=== PATIENT | female | born 1940 | race Asian ===

== ENCOUNTER 2016-12-05 12:08 | Emergency (ER) | payer MEDICARE, OTHER ==
[~2016-12-05] VITALS: Ht 149.9 cm; Wt 54.5 kg
[~2016-12-05 12:08] MED LIST: AMLO-512 PO; ASPI-825 PO; CALC-487 PO; FAMO40TA76 PO; HYDR50 PO; LISI40TA4 PO; LOSA50TA37 PO; METF500T4 PO; METO10TA3 PO; METO50 PO; MULT400T5; NACL1 PO; NEBI5 PO; PRAV20TA4 PO; PRED20 PO
[2016-12-05 12:46] LABS: GLUCOSE,POINT OF CARE 154 MG/DL (70-110)
[2016-12-05 12:50] LABS: BASOPHILS % (AUTO) 0.5 % (0.0-2.0); EOSINOPHILS % (AUTO) 2.6 % (1.0-6.0); HEMATOCRIT 36.3 % (36-46); HEMOGLOBIN 12.3 g/dL (12.0-16.0); LYMPHOCYTES # (AUTO) 1.7 K/uL (1.0-4.8); LYMPHOCYTES % (AUTO) 20.9 % (22.0-44.0); MEAN CORPUSCULAR HEMOGLOBIN 28.6 pg (26.0-34.0); MEAN CORPUSCULAR HGB CONC 33.8 G/dL (31.0-37.0); MEAN CORPUSCULAR VOLUME 84 fL (80-100); MONOCYTES # (AUTO) 0.8 K/uL (0.1-1.0); MONOCYTES % (AUTO) 9.9 % (2.0-9.0); NEUTROPHILS # (AUTO) 5.5 K/uL (1.8-7.7); NEUTROPHILS % (AUTO) 66.1 % (40.0-70.0); PLATELET COUNT (AUTO) 277 K/uL (150-450); RED BLOOD CELL COUNT(AUTO) 4.31 MIL/uL (4.00-5.20); RED CELL DISTRIBUTION WIDTH 13.4 % (11.5-14.5); WHITE BLOOD COUNT (AUTO) 8.3 K/uL (4.5-11.0)
[2016-12-05 12:59] LABS: ANION GAP 8 mmol/L (8-16); CARBON DIOXIDE 28 mmol/L (22-29); CHLORIDE 90 mmol/L (98-107); CREATININE 1.03 mg/dL (0.60-1.30); GLOMERULAR FILTR. RATE CALC 52 mL/min (>60); SODIUM SERUM 126 mmol/L (136-145); UREA NITROGEN, BLOOD 18 mg/dL (7-18)
[2016-12-05 13:01] LABS: PROTHROMBIN TIME 10.3 SEC (9.4-11.6)
[2016-12-05 13:05] LABS: ALANINE AMINOTRANSFERASE 26 U/L (12-78); ALBUMIN 4.1 g/dL (3.4-5.0); ASPARTATE AMINOTRANSFERASE 29 U/L (15-37); BILIRUBIN,TOTAL 0.4 mg/dL (0.1-1.0); CREATINE KINASE, TOTAL 73 U/L (26-192); TOTAL PROTEIN, SERUM 8.3 g/dL (6.4-8.2)
[2016-12-05 13:13] LABS: B-TYPE NATRIURETIC PEPTIDE 50 pg/mL (0-100)
[2016-12-05] MEDS ORDERED: SODIUM CHLORIDE 0.9% 1,000 ML IV ONE (13:15)
[2016-12-05 16:20] LABS: APPEARANCE,URINE CLOUDY (CLEAR); GLUCOSE, URINE (UA) NEGATIVE (NEGATIVE); KETONES,URINE NEGATIVE (NEGATIVE); LEUKOCYTE ESTERASE ,URINE SMALL (NEGATIVE); OCCULT BLOOD,URINE NEGATIVE (NEGATIVE); PH,URINE 6.5 (5.0-8.0); PROTEIN,URINE NEGATIVE (NEGATIVE)
[2016-12-05 16:24] LABS: ADD UA MICROSCOPIC YES
[2016-12-05 16:32] LABS: SQUAMOUS EPITHELIAL CELL,UR Rare /LPF (None Seen)
[2016-12-05 16:33] LABS: RBC,URINE 0-2 /HPF (0-2)
[2016-12-05] MEDS ORDERED: CefTRIAXone 1 GM/DEXTROSE 50 ML IV ONE (16:45)
[2016-12-05 17:12] VITALS: BP 138/72
== END 2016-12-05 17:15 | disposition home or self-care (01) ==
LOC: EMS 12:11
DX: N39.0 Urinary tract infection, site not specified (principal); E11.9 Type 2 diabetes mellitus without complications; I10 Essential (primary) hypertension; E78.00 Pure hypercholesterolemia, unspecified
CPT/HCPCS: 36415; 70450; 71010; 80053; 81001; 82550; 82962; 83880; 84484; 85025; 85610; 85730; 87077; 87086; 87186; 93005; 96361; 96365; 99285; J0696; J7030